=== PATIENT | female | born 1970 | race Caucasian/White ===

== ENCOUNTER 2017-01-31 08:31 | Emergency (ER) | payer BC ==
[2017-01-31 09:01] LABS: BASO # 0.1 10_X3_uL (0.0-0.1); BASO % 0.8 % (0.1-1.2); EOS # 0.3 10_X3_uL (0.0-0.4); EOS % 3.7 % (0.7-5.8); GRAN # 6.4 10_X3_uL (1.6-6.1); GRAN % 68.3 % (34.0-71.1); HEMATOCRIT 44.3 % (34-45); HEMOGLOBIN 15.3 g/dL (11.2-15.7); LYMPH % 21.2 % (19.3-51.7); MEAN CORPUSCULAR HEMOGLOBIN 30.7 pg (27.0-33.0); MEAN CORPUSCULAR HGB CONC 34.5 g/dL (32.0-36.0); MEAN CORPUSCULAR VOLUME 88.8 fL (79-95); MEAN PLATELET VOLUME 11.1 fl (7.5-11.5); MONO # 0.6 10_X3_uL (0.2-0.9); PLATELET COUNT 72 x10_3/uL (182-369); RED BLOOD COUNT 4.99 x10_6/uL (3.9-5.2); RED CELL DISTRIBUTION WIDTH 13.8 % (11.7-14.4); WHITE BLOOD COUNT 9.3 x10_3/uL (4.0-10.0)
[2017-01-31 09:14] LABS: BLOOD UREA NITROGEN 16 mg/dL (7-18); CARBON DIOXIDE 19 mmol/L (21-32); CREATINE KINASE 60 U/L (21-215); CREATININE 0.6 mg/dL (0.6-1.3); GLUCOSE,RANDOM 101 mg/dL (70-99); POTASSIUM 4.4 mmol/L (3.5-5.1); SODIUM 137 mmol/L (136-145)
[2017-01-31 09:25] LABS: CKMB 1.4 ng/ml (0.0-5.0); FREE T4 1.05 ng/dL (0.93-1.7); THYROID STIMULATING HORMONE 2.23 uIU/mL (0.34-4.82)
== END 2017-01-31 11:00 | disposition home or self-care (01) ==
LOC: ER 08:31
PROVIDERS: Emergency Medicine
DX: R07.89 Other chest pain (principal); F43.9 Reaction to severe stress, unspecified; Z79.899 Other long term (current) drug therapy
CPT/HCPCS: 36415; 71010; 80048; 82550; 82553; 84439; 84443; 85025; 93005; 99070; 99285-25